=== PATIENT | female | born 1970 | race Caucasian/White ===

== ENCOUNTER 2021-08-09 09:26 | Outpatient (CLI) | payer OTHER ==
--- NOTE | 2021-08-17 11:45 | Mammography Report ---
BILATERAL DIGITAL SCREENING MAMMOGRAM 3D/2D: 08/09/2021 CLINICAL: Routine screening. No prior exams were available for comparison. The tissue of both breasts is heterogeneously dense. T his may lower the sensitivity of mammography. There is a possible irregular equal density asymmetry with a microlobulated margin in the right breas t anterior depth lateral region seen on the craniocaudal view only. No other significant masses, calcifications, or other findings are seen in either breast. IMPRESSION: INCOMPLETE: NEEDS ADDITIONAL IMAGING EVALUATION The possible irregular equal density asymmetry in the right breast is indeterminate. Additional view s with possible ultrasound are recommended. This exam was interpreted at Station ID: [id number]. NOTE: For mammograms, a report in lay terms will be sent to the patient. Approximately 15% of breast malignancies will not be visualized mammographically. In the management of a palpable breast mass, a negative mammogram must not discourage biopsy of a clinically suspicious lesion. Electronically Signed By: Yanira reardon/isaac:08/16/2021 08:23:59 ACR BI-RADS Category 0: Incomplete 3340F PARENCHYMAL PATTERN: (D) - The breast(s) demonstrate(s) heterogeneously dense fibroglandular parenchy ma. BI-RADS CATEGORY: (0) - 0 Mammo and [place] [id number] Immediate follow-up LATERALITY: (B)
== END 2021-08-09 09:27 | disposition home or self-care (01) ==
LOC: DI.S 09:26
PROVIDERS: ATTEND Internal Medicine
DX: Z12.31 Encounter for screening mammogram for malignant neoplasm of breast (principal); R92.8 Other abnormal and inconclusive findings on diagnostic imaging of breast; Z13.220 Encounter for screening for lipoid disorders; Z11.59 Encounter for screening for other viral diseases
CPT/HCPCS: 36415; 80061; 83721; 86803; 87389

== ENCOUNTER 2021-08-09 09:33 | Outpatient (CLI) | payer OTHER ==
[2021-08-09 14:30] LABS: CHOL/HDL RATIO 2.7 (<4.4); CHOLESTEROL 219 mg/dL; HDL CHOLESTEROL 82 mg/dL; LDL CHOLESTEROL,CALCULATED 119 mg/dL; LDL/HDL RATIO 1.5 (<4.4); TRIGLYCERIDES 90 mg/dL; VLDL CHOLESTEROL 18 mg/dL
[2021-08-10 11:50] LABS: HEPATITIS C ANTIBODY NON-REACTIVE (NON-REACTIVE)
[2021-08-10 13:01] LABS: HIV AG/AB 4TH GEN NON-REACTIVE (NON-REACTIVE)
== END 2021-08-09 09:34 | disposition home or self-care (01) ==
LOC: LAB.S 09:33
PROVIDERS: ATTEND Internal Medicine
DX: Z13.220 Encounter for screening for lipoid disorders (principal); Z11.59 Encounter for screening for other viral diseases
CPT/HCPCS: 36415; 80061; 83721; 86803; 87389

== ENCOUNTER 2022-06-06 09:41 | Outpatient (CLI) | payer OTHER ==
--- NOTE | 2022-06-06 14:00 | MRI Report ---
PROCEDURE: SHOULDER WO - RT INDICATIONS: RIGHT SHOULDER PAIN TECHNIQUE: Noncontrast oblique coronal T2 fast spin echo with fat saturation, oblique sagittal T1 spin echo and T2 fast spin echo with fat saturation, axial T1 spin echo and T2 fast spin echo with fat saturation a nd 3-D gradient echo through the shoulder. COMPARISON: None. FINDINGS: Image quality: Excellent. Rotator cuff: Mild to moderate supraspinatus and infraspinatus tendinosis. Focal low-grade partial ar ticular sided and intrasubstance tearing of the infraspinatus tendon at the distal insertion with adj acent chronic traction cystic changes. The teres minor and subscapularis tendons are intact. There is no significant rotator cuff muscle atrophy. Bones and bursae: No acute trabecular bone injury or fracture. Chronic traction cystic changes are se en at the posterosuperior humeral head and greater tuberosity near the rotator cuff tendon insertions . Mild partial thickness cartilage irregularity in the glenohumeral joint. Mild degenerative spurring is seen in the glenoid rim. Moderate degenerative changes are seen at the acromioclavicular joint wi th subchondral edema and marginal osteophyte formation. There is a small amount of subacromial/subdel toid bursal fluid. A physiologic amount of glenohumeral joint fluid is present. Capsule and soft tissues: There is chronic nondisplaced tearing of the posterosuperior labrum. The pr oximal biceps long head tendon is intact. There is mild partial effacement of the normal fat signal i n the rotator interval. The glenohumeral ligaments are grossly intact. IMPRESSION: 1.Focal low-grade partial articular sided and intrasubstance tearing of the infraspinatus tendon at t he distal insertion superimposed on mild to moderate supraspinatus and infraspinatus tendinosis. 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 3.Moderate acromioclavicular joint osteoarthrosis with subchondral edema. 4.Small subacromial/subdeltoid bursal effusion or bursitis. Reviewed by: Francisco J Smalls MD on 06/06/2022 1:59 PM PST Approved by: Francisco J Smalls MD on 06/06/2022 1:59 PM PST Station ID: [id number]
== END 2022-06-06 09:42 | disposition home or self-care (01) ==
LOC: DI 09:41
PROVIDERS: ATTEND Orthopaedic Surgery
DX: M75.111 Incomplete rotator cuff tear or rupture of right shoulder, not specified as traumatic (principal); S43.431A Superior glenoid labrum lesion of right shoulder, initial encounter; M94.211 Chondromalacia, right shoulder; M19.011 Primary osteoarthritis, right shoulder; M25.411 Effusion, right shoulder